=== PATIENT | male | born 1960 | race American Indian/Alaskan Native ===

== ENCOUNTER 2018-12-05 14:53 | Inpatient (IN) | payer MEDICAID ==
[2018-12-05] MEDS ORDERED: methylPREDNISolone SOD SUCC 125 MG/2 ML VIAL IVP ONE (15:52)
[2018-12-05] MEDS ORDERED: IPRATROPIUM/ALBUTEROL 3 ML DEYVIAL IH ONE (15:52)
--- NOTE | 2018-12-05 15:52 | EDPHY ---
H & P Time Seen by Provider: 12/05/18 15:37 HPI/ROS: CHIEF COMPLAINT: Shortness of breath HISTORY OF PRESENT ILLNESS: Patient is a 58-year-old male with a history of emphysema who presents emergency department with worsening shortness of breath. The patient states that 2 weeks ago he was diagnosed with influenza. Because of this he had increasing shortness of breath. He was treated with antibiotics and steroids. He seemed to turn the corner on Monday and Monday. However on Monday he began to worsen once again. He now has increasing shortness of breath. He has decreased exercise tolerance. He has trouble speaking in full sentences. He has a cough productive of yellow sputum. He denies fevers or chills. No leg pain or swelling. The patient does not smoke. REVIEW OF SYSTEMS: 10 systems were reveiwed and are negative with the exception of the elements mentioned in the history of present illness. Past Medical/Surgical History: Includes emphysema Social history: Patient does not smoke. Patient is . Smoking Status: Current some day smoker Physical Exam: 37.0, 148/87, 92, 18, 85%. Patient was placed on 4 L NS at 92%. GENERAL: Mild acute respiratory distress, alert. HEENT: Eyes normal to inspection, normal pharynx, no signs of dehydration. NECK: Normal, supple. RESPIRATORY: Patient has mild increase work of breathing with mild respiratory distress. Patient has decreased breath sounds bilaterally. Scattered wheezing. CVS: Regular rate and rhythm, no rubs, murmurs, or gallops. ABDOMEN: Soft, nontender, nondistended, no organomegaly. BACK: Normal to inspection, no CVA tenderness. SKIN: Normal color, no rash, warm, dry. No pallor. EXTREMITIES: Finger clubbing. No pedal edema, no calf tenderness, no Homans sign or cords, no joint swelling. NEURO/PSYCH: Alert and oriented, normal mood and affect, normal motor sensory exam. No obvious cranial nerve deficit. Constitutional: Initial Vital Signs Temperature (C) 37.0 C 12/05/18 15:03 Heart Rate 92 12/05/18 15:03 Respiratory Rate 18 12/05/18 15:03 Blood Pressure 149/87 H 12/05/18 15:03 O2 Sat (%) 85 L 12/05/18 15:03 O2 Delivery Mode Nasal Cannula O2 (L/minute) 4 Allergies/Adverse Reactions: Penicillins Allergy (Verified 12/05/18 15:02) Home Medications: Medication Instructions Recorded Aspirin [Aspirin 325 mg (*)] 325 mg PO TID PRN 02/18/14 Herbals/Supplements -Info Only 1 ea PO DAILY 02/18/14 Ipratropium/Albuterol [Combivent 1 inh IH QID 30 Days mdi 02/19/14 Respimat Inhal [place](RX)] levOFLOXACIN [levAQUIN (*)] 750 mg PO DAILY10 #4 tab 02/19/14 predniSONE 40 mg PO DAILY #20 tablet 02/21/14 Medical Decision Making - Diagnostics Imaging Results: Imaging Impressions Chest X-Ray 12/05/18 15:53 Impression: 1. Prominent pulmonary vasculature along with some prominent interstitial markings and curly B lines. Consider mild fluid overload/CHF. 2. Underlying COPD and emphysema. 3. Peribronchial thickening bilaterally. Consider underlying bronchitis, viral process, and/or reactive airways disease. ED Course/Re-evaluation: In the emergency department I discussed possible etiologies with the patient. I answered all his questions. IV was placed. Laboratory studies were obtained. Patient had chest x-ray and EKG ordered. Patient was given a DuoNeb and Solu-Medrol 125 mg IV. CBC was notable elevated white count of 11 his chemistry panel is unremarkable. Lactic acid was 0.6. His BNP was 27. On recheck the patient was still having a fair amount of respiratory distress. He states that the inhaler improved his symptoms but he still has increased work of breathing with decreased breath sounds. He was given a repeat albuterol neb. The chest x-ray: Please refer the dictated report. There is underlying COPD. They queried whether this could potentially be CHF. EKG: Sinus rhythm at 85. Normal axis. Normal intervals. No ST or T-wave abnormalities. Based on the patient's presentation and his BNP of 27, I think this is more likely COPD exacerbation. Based on the patient's ongoing shortness of breath and work of breathing as well as his oxygen requirement 4 L the saturation 90% he will be admitted for further observation. Differential Diagnosis: My differential includes but not limited to COPD exacerbation, pneumonia, bronchitis, ACS, acute SD - Data Points Laboratory Results: Laboratory Results 12/05/18 15:52 12/05/18 15:52 12/05/18 12/05/18 12/05/18 15:52 15:52 15:52 WBC 11.47 10^3/uL H 10^3/uL (3.80-9.50) RBC 5.14 10^6/uL 10^6/uL (4.40-6.38) Hgb 15.1 g/dL g/dL (13.7-17.5) Hct 45.9 % % (40.0-51.0) MCV 89.3 fL fL (81.5-99.8) MCH 29.4 pg pg (27.9-34.1) MCHC 32.9 g/dL g/dL (32.4-36.7) RDW 12.3 % % (11.5-15.2) Plt Count 245 10^3/uL 10^3/uL (150-400) MPV 9.1 fL fL (8.7-11.7) Neut % (Auto) 79.1 % H % (39.3-74.2) Lymph % (Auto) 11.5 % L % (15.0-45.0) [place] % (Auto) 6.1 % % (4.5-13.0) Eos % (Auto) 2.5 % % (0.6-7.6) Baso % (Auto) 0.5 % % (0.3-1.7) Nucleat RBC Rel Count 0.0 % % (0.0-0.2) Absolute Neuts (auto) 9.06 10^3/uL H 10^3/uL (1.70-6.50) Absolute Lymphs (auto) 1.32 10^3/uL 10^3/uL (1.00-3.00) Absolute Monos (auto) 0.70 10^3/uL 10^3/uL (0.30-0.80) Absolute Eos (auto) 0.29 10^3/uL 10^3/uL (0.03-0.40) Absolute Basos (auto) 0.06 10^3/uL 10^3/uL (0.02-0.10) Absolute Nucleated RBC 0.00 10^3/uL 10^3/uL (0-0.01) Immature Gran % 0.3 % % (0.0-1.1) Immature Gran # 0.04 10^3/uL 10^3/uL (0.00-0.10) VBG Lactic Acid Sodium 136 mEq/L mEq/L (135-145) Potassium 4.5 mEq/L mEq/L (3.5-5.2) Chloride 100 mEq/L mEq/L (97-110) Carbon Dioxide 29 mEq/l mEq/l (22-31) Anion Gap 7 mEq/L mEq/L (6-14) BUN 14 mg/dL mg/dL (7-23) Creatinine 0.8 mg/dL mg/dL (0.7-1.3) Estimated GFR > 60 Glucose 92 mg/dL mg/dL (70-100) Calcium 9.1 mg/dL mg/dL (8.5-10.4) Troponin I < 0.012 ng/mL ng/mL (0.000-0.034) NT-Pro-B Natriuret Pep 27 pg/mL pg/mL (0-125) 12/05/18 15:52 WBC RBC Hgb Hct MCV MCH MCHC RDW Plt Count MPV Neut % (Auto) Lymph % (Auto) [place] % (Auto) Eos % (Auto) Baso % (Auto) Nucleat RBC Rel Count Absolute Neuts (auto) Absolute Lymphs (auto) Absolute Monos (auto) Absolute Eos (auto) Absolute Basos (auto) Absolute Nucleated RBC Immature Gran % Immature Gran # VBG Lactic Acid 0.6 mmol/L L mmol/L (0.7-2.1) Sodium Potassium Chloride Carbon Dioxide Anion Gap BUN Creatinine Estimated GFR Glucose Calcium Troponin I NT-Pro-B Natriuret Pep Medications Given: Discontinued Medications Albuterol/Ipratropium (Duoneb) 3 ml IH EDNOW ONE Stop: 12/05/18 15:53 Last Admin: 12/05/18 15:59 Dose: 3 ml Methylprednisolone Sodium Succinate (Solu-Medrol) 125 mg IVP EDNOW ONE Stop: 12/05/18 15:53 Last Admin: 12/05/18 15:59 Dose: 125 mg Departure - Departure Disposition: [facility] Inpatient Acute Clinical Impression: Chronic obstructive pulmonary disease with acute exacerbation Condition: Good
[2018-12-05 16:14] LABS: PLATELET COUNT 245 10^3/uL (150-400)
[2018-12-05] MEDS ORDERED: ALBUTEROL 3 ML DEYVIAL IH ONE (17:28)
[2018-12-05] MEDS ORDERED: ONDANSETRON 4 MG/2 ML VIAL IVP PRN (18:35)
[2018-12-05] MEDS ORDERED: ACETAMINOPHEN 325 MG TAB PO PRN (18:35)
[2018-12-05] MEDS ORDERED: ALBUTEROL 3 ML DEYVIAL IH PRN (18:35)
[2018-12-05] MEDS ORDERED: ONDANSETRON DISINTEGRATING 4 MG TAB PO PRN (18:35)
--- NOTE | 2018-12-05 18:42 | PDGENHP ---
History and Physical - Chief Complaint sob - History of Present Illness Patient is a 58-year-old male with a history of emphysema who presents with worsening shortness of breath. The patient states that 2 weeks ago he was diagnosed with influenza. Because of this he had increasing shortness of breath. He was treated with antibiotics and steroids. He seemed to turn the corner on Monday and Monday. However on Monday he began to worsen once again. He now has increasing shortness of breath. He has decreased exercise tolerance. He has trouble speaking in full sentences. He has a cough productive of yellow sputum. He denies fevers or chills. No leg pain or swelling. The patient does not smoke. His baseline O2 is 1-2 Liters. He is on 4 Liters currently. He is tachycardic. He is tachypneic. Denies cp, palpitations, or leg swelling Past Medical/Surgical History: emphysema Social history: Patient does not smoke. Patient is . FmHx: non contributory Studies: CXR: Hyperexpansion and peribronchial thickening, personally reviewed EKG: sinus tachycardia ER: Solumedrol given. Nebs given History Information - Allergies/Home Medication List Allergies/Adverse Reactions: Penicillins Allergy (Verified 12/05/18 15:02) Home Medications: Herbals/Supplements -Info Only 1 ea PO DAILY 02/18/14 [Last Taken 12/05/18] Albuterol [Proventil Inhaler HFA (*)] 1 - 2 puffs IH Q4H PRN 12/05/18 [Last Taken 12/05/18 12:00] Fluticasone/Salmeter 250/50Mcg [Advair 250/50 (*)] 1 puffs IH BID 12/05/18 [ Last Taken 11/28/18] Ipratropium/Albuterol [Duoneb (*)] 3 ml IH Q4H PRN 12/05/18 [Last Taken 16:00] Tiotropium Inhaler [Spiriva Handihaler] 18 mcg IH DAILY 12/05/18 [Last Taken ] I have personally reviewed and updated: medical history, social history - Social History Smoking Status: Current some day smoker Review of Systems Review of Systems: ROS: 10pt was reviewed & negative except for what was stated in HPI & below Physical Exam Physical Exam: Temp Pulse Resp BP Pulse Ox 37 C 102 H 30 H 125/79 H 91 L 12/05/18 17:53 12/05/18 17:53 12/05/18 17:53 12/05/18 17:53 12/05/18 17:53 O2 (L/minute) 4 Constitutional: no apparent distress Eyes: PERRL Ears, Nose, Mouth, Throat: moist mucous membranes, hearing normal Cardiovascular: regular rate and rhythym, No edema Respiratory: reduced air movement, expiratory wheeze, respiratory distress, No no respiratory distress Gastrointestinal: normoactive bowel sounds Skin: warm Musculoskeletal: full muscle strength Neurologic: AAOx3 Psychiatric: interacting appropriately, not anxious, not encephalopathic Lymph, Heme, Immunologic: No petechiae Lab Data & Imaging Review 12/05/18 15:52 12/05/18 15:52 WBC 11.47 10^3/uL (3.80-9.50) H 12/05/18 15:52 RBC 5.14 10^6/uL (4.40-6.38) 12/05/18 15:52 Hgb 15.1 g/dL (13.7-17.5) 12/05/18 15:52 Hct 45.9 % (40.0-51.0) 12/05/18 15:52 MCV 89.3 fL (81.5-99.8) 12/05/18 15:52 MCH 29.4 pg (27.9-34.1) 12/05/18 15:52 MCHC 32.9 g/dL (32.4-36.7) 12/05/18 15:52 RDW 12.3 % (11.5-15.2) 12/05/18 15:52 Plt Count 245 10^3/uL (150-400) 12/05/18 15:52 MPV 9.1 fL (8.7-11.7) 12/05/18 15:52 Neut % (Auto) 79.1 % (39.3-74.2) H 12/05/18 15:52 Lymph % (Auto) 11.5 % (15.0-45.0) L 12/05/18 15:52 [place] % (Auto) 6.1 % (4.5-13.0) 12/05/18 15:52 Eos % (Auto) 2.5 % (0.6-7.6) 12/05/18 15:52 Baso % (Auto) 0.5 % (0.3-1.7) 12/05/18 15:52 Nucleat RBC Rel Count 0.0 % (0.0-0.2) 12/05/18 15:52 Absolute Neuts (auto) 9.06 10^3/uL (1.70-6.50) H 12/05/18 15:52 Absolute Lymphs (auto) 1.32 10^3/uL (1.00-3.00) 12/05/18 15:52 Absolute Monos (auto) 0.70 10^3/uL (0.30-0.80) 12/05/18 15:52 Absolute Eos (auto) 0.29 10^3/uL (0.03-0.40) 12/05/18 15:52 Absolute Basos (auto) 0.06 10^3/uL (0.02-0.10) 12/05/18 15:52 Absolute Nucleated RBC 0.00 10^3/uL (0-0.01) 12/05/18 15:52 Immature Gran % 0.3 % (0.0-1.1) 12/05/18 15:52 Immature Gran # 0.04 10^3/uL (0.00-0.10) 12/05/18 15:52 VBG Lactic Acid 0.6 mmol/L (0.7-2.1) L 12/05/18 15:52 Sodium 136 mEq/L (135-145) 12/05/18 15:52 Potassium 4.5 mEq/L (3.5-5.2) 12/05/18 15:52 Chloride 100 mEq/L (97-110) 12/05/18 15:52 Carbon Dioxide 29 mEq/l (22-31) 12/05/18 15:52 Anion Gap 7 mEq/L (6-14) 12/05/18 15:52 BUN 14 mg/dL (7-23) 12/05/18 15:52 Creatinine 0.8 mg/dL (0.7-1.3) 12/05/18 15:52 Estimated GFR > 60 12/05/18 15:52 Glucose 92 mg/dL (70-100) 12/05/18 15:52 Calcium 9.1 mg/dL (8.5-10.4) 12/05/18 15:52 Troponin I < 0.012 ng/mL (0.000-0.034) 12/05/18 15:52 NT-Pro-B Natriuret Pep 27 pg/mL (0-125) 12/05/18 15:52 Assessment & Plan Assessment: #Chronic obstructive pulmonary disease with acute exacerbation #Acute Respiratory Failure #Leukocytosis #Sinus Tachycardia #Recent Influenza Plan: Admission I am worried that his respiratory failure is getting worse. He is having a difficult time with air movement. He is working hard. We will start CPAP. cont steroids, IV for now I dont see a clear infiltrate on CXR but given his Leukocytosis and worsening respiratory failure and his reported intermittent fever, we will start Levaquin. A procalcitonin has been ordered. A resp panel is pending. cont bronchodilators There are no ICU beds and so he will remain in the ER for now SCD's Full Code total critical care time is 60 minutes
[2018-12-05] MEDS ORDERED: HYDROCODONE/APAP 5/325 TAB ONE (19:15)
[2018-12-05] MEDS: HYDROCODONE/APAP 5/325 TAB PO PRN (19:16)
--- NOTE | 2018-12-05 20:20 | CPEKG ---
Test Reason : OPEN Blood Pressure : / mmHG Vent. Rate : 085 BPM Atrial Rate : 084 BPM P-R Int : 160 ms QRS Dur : 097 ms QT Int : 371 ms P-R-T Axes : 078 052 059 degrees QTc Int : 442 ms Sinus rhythm Ventricular premature complex Probable left atrial enlargement Confirmed by Maribel Levy [id number]) on 12/05/2018 8:19:59 PM Referred By: MARIBEL LEVY Confirmed By:Maribel Levy
[2018-12-05] MEDS: IPRATROPIUM/ALBUTEROL 3 ML DEYVIAL IH SCH (20:53)
[2018-12-05] MEDS: methylPREDNISolone SOD SUCC 125 MG/2 ML VIAL IVP SCH (22:32)
[2018-12-06 04:37] LABS: PLATELET COUNT 243 10^3/uL (150-400)
[2018-12-06] MEDS: IPRATROPIUM/ALBUTEROL 3 ML DEYVIAL IH SCH ×4 (05:35→20:20)
[2018-12-06] MEDS: methylPREDNISolone SOD SUCC 125 MG/2 ML VIAL IVP SCH ×3 (05:47→22:04)
[2018-12-06] MEDS ORDERED: predniSONE 20 MG TAB PO SCH (09:00)
--- NOTE | 2018-12-06 09:40 | ASMTCASEMG ---
Living Arrangements What is your living Answers: Alone arrangement? Who do you live with? Type Of Residence What kind of residence do Answers: Apartment you live in? Discharge Plan Comments Coordination Status Comments Notes: Patient is a 58yo male who is admitted OBS for COPD exacerbation, acute respiratory failure, leukocytosis, sinus tachycardia and recent influenza. No therapies ordered at this time. D/C plan TBD. CM will follow. Date Signed: 12/06/2018 09:40 AM Electronically Signed By:Cindy Arora LCSW
[2018-12-06] MEDS: HYDROCODONE/APAP 5/325 TAB PO PRN ×2 (10:23→17:16)
--- NOTE | 2018-12-06 10:43 | PDMN ---
Medical Necessity Medical necessity: Pt meets IP criteria as of 12/05/2018 per and MCG M-100 ( COPD); est los > 2 mn for ongoing tx and management of acute COPD exacerbation with increased O2 demand from baseline, tachypnea and tachycardia; requiring CPAP, IV steroids, IV ABX, and further workup.
--- NOTE | 2018-12-06 13:58 | HOSPPROG ---
Hospitalist Progress Note Assessment/Plan: # viral bronchitis - rhinovirus/enterovirus # COPD exacerbation d/t viral bronchitis - cont nebs, solu-medrol, abx (change levaquin to azith) - add mucinex, flutter valve, percussion # acute on chronic hypoxic resp failure - d/t COPD exacerbation Subjective: feels much better than yesterday; still very short of breath; coughing but having difficulty producing sputum Objective: Vital Signs Temp Pulse Resp BP Pulse Ox 36.1 C 89 21 H 127/74 H 89 L 12/06/18 08:00 12/06/18 11:01 12/06/18 11:01 12/06/18 08:00 12/06/18 11:01 Laboratory Results 12/06/18 03:08 12/06/18 03:08 12/05/18 12/06/18 12/07/18 05:59 05:59 05:59 Intake Total 150 Output Total 300 Balance -150 chart reviewed CXR personally reviewed - Physical Exam Constitutional: other (persed lip breathing, very short of breath) Cardiovascular: regular rate and rhythym, no murmur, rub, or gallop Respiratory: expiratory wheeze, respiratory distress, rhonchi, other (Speaking in short sentences) ICD10 Worksheet Patient Problems: Problems Problem Status Onset Acute respiratory failure Acute Chronic obstructive pulmonary disease with acute exacerbation Acute
[2018-12-06] MEDS: guaiFENesin 600 MG TAB.ER PO SCH ×2 (14:39→20:29)
[2018-12-07] MEDS: IPRATROPIUM/ALBUTEROL 3 ML DEYVIAL IH SCH ×4 (05:33→20:08)
[2018-12-07] MEDS: methylPREDNISolone SOD SUCC 125 MG/2 ML VIAL IVP SCH (05:55)
[2018-12-07] MEDS: HYDROCODONE/APAP 5/325 TAB PO PRN ×3 (06:01→22:23)
[2018-12-07] MEDS: guaiFENesin 600 MG TAB.ER PO SCH ×2 (08:51→20:59)
[2018-12-07] MEDS ORDERED: AZITHROMYCIN IV 500 MG in NS 250 ML IV SCH (09:00)
--- NOTE | 2018-12-07 12:26 | HOSPPROG ---
Hospitalist Progress Note Assessment/Plan: # viral bronchitis - rhinovirus/enterovirus; recently recovered from influenza # COPD exacerbation d/t viral bronchitis - cont nebs, solu-medrol (decrease dose today), abx (change levaquin to azith ), mucinex - cont pulm hygiene (flutter valve, percussion) # acute on chronic hypoxic resp failure - d/t COPD exacerbation; home 2L O2 requirement; follows with Dr Kelley Subjective: feels much better today; still SOB with activity but improving; cough is more productive Objective: Vital Signs Temp Pulse Resp BP Pulse Ox 36.3 C 74 18 106/54 L 91 L 12/07/18 11:49 12/07/18 11:49 12/07/18 11:49 12/07/18 11:49 12/07/18 11:49 Laboratory Results 12/06/18 03:08 12/07/18 03:10 12/06/18 12/07/18 12/08/18 05:59 05:59 05:59 Intake Total 150 840 550 Output Total 300 1675 300 Balance -150 -835 250 high risk - he is still has high O2 demands - Physical Exam Constitutional: uncomfortable Cardiovascular: regular rate and rhythym, no murmur, rub, or gallop Respiratory: reduced air movement, expiratory wheeze (diffuse), respiratory distress (mild), No clear to auscultation, No rhonchi Gastrointestinal: normoactive bowel sounds, soft, non-tender abdomen, no palpable masses ICD10 Worksheet Patient Problems: Problems Problem Status Onset Acute respiratory failure Acute Chronic obstructive pulmonary disease with acute exacerbation Acute
--- NOTE | 2018-12-07 13:10 | ASMTCMCOM ---
CM Note CM Note Notes: CM discussed pt care with RN. Pt is on IV antibiotics. CM to follow to determine if pt will continue to follow to determine needs at D/C. Referral initiated with [facility] and [facility]. Plan: Home with IV antibiotics when medically stable. Date Signed: 12/07/2018 01:09 PM Electronically Signed By:ELIECER Rome
[2018-12-07] MEDS: methylPREDNISolone SOD SUCC 40 MG/ML VIAL IVP SCH ×2 (13:49→20:59)
[2018-12-08] MEDS: methylPREDNISolone SOD SUCC 40 MG/ML VIAL IVP SCH ×3 (05:28→23:34)
[2018-12-08] MEDS: HYDROCODONE/APAP 5/325 TAB PO PRN ×3 (05:34→23:43)
[2018-12-08] MEDS: IPRATROPIUM/ALBUTEROL 3 ML DEYVIAL IH SCH ×4 (05:38→19:25)
[2018-12-08] MEDS: guaiFENesin 600 MG TAB.ER PO SCH ×2 (08:59→23:34)
[2018-12-08] MEDS: AZITHROMYCIN 250 MG TAB PO SCH (08:59)
[2018-12-08] MEDS ORDERED: LACTULOSE 20 GM/30 ML UDCUP PO PRN (11:55)
[2018-12-08] MEDS ORDERED: POLYETHYLENE GLYCOL 3350 17 GM PKT PO PRN (11:55)
[2018-12-08] MEDS ORDERED: BISACODYL 10 MG SUPP PR PRN (11:55)
[2018-12-08] MEDS ORDERED: MAGNESIUM HYDROXIDE 30 ML UDCUP PO PRN (11:55)
--- NOTE | 2018-12-08 16:25 | HOSPPROG ---
Hospitalist Progress Note Assessment/Plan: DIAGNOSES: * Acute hypoxemic respiratory failure * Acute COPD exacerbation * Acute viral respiratory infection with rhino virus * Chronic COPD limiting daily activities significantly PLANS: * Continue current steroid and bronchodilators * Continue flutter valve therapy * Continue attempts to increase ambulation SUBJECTIVE: Some improvement in dyspnea today but still quite limited with very much difficulty ambulating without oxygen OBJECTIVE Vitals reviewed: Respiratory rate still intermittently tachypneic, pulse intermittently still tachycardic, blood pressure good no fever 4-5 L oxygen by nasal cannula (usual 2 L at home) Cvt Rn, my review: Sinus Exam: alert oriented skin warm dry color ok resps labored at rest on oxygen lungs severely diminished breath sounds with some expiratory wheeze, very tight heart regular, no murmur abd soft nondistended nontender, bowel sounds present limbs warm, no edema iv site ok Microbiology: PCR study shows rhino virus Blood cultures pending with nothing growing so far Objective: Vital Signs Temp Pulse Resp BP Pulse Ox 36.3 C 82 18 122/57 H 91 L 12/08/18 16:00 12/08/18 16:00 12/08/18 16:00 12/08/18 16:00 12/08/18 16:00 Laboratory Results 12/06/18 03:08 12/07/18 03:10 12/07/18 12/08/18 12/09/18 06:59 06:59 06:59 Intake Total 1190 1450 Output Total 2139 0189 Balance -485 -875 ICD10 Worksheet Patient Problems: Problems Problem Status Onset Chronic obstructive pulmonary disease with acute exacerbation Acute Acute respiratory failure Acute
[2018-12-08] MEDS: SENNOSIDES/DOCUSATE SODIUM TAB PO SCH (23:33)
[2018-12-09] MEDS: IPRATROPIUM/ALBUTEROL 3 ML DEYVIAL IH SCH ×4 (05:28→21:11)
[2018-12-09] MEDS: methylPREDNISolone SOD SUCC 40 MG/ML VIAL IVP SCH ×3 (05:46→21:37)
[2018-12-09] MEDS: HYDROCODONE/APAP 5/325 TAB PO PRN ×4 (05:51→22:41)
[2018-12-09] MEDS: AZITHROMYCIN 250 MG TAB PO SCH (08:09)
[2018-12-09] MEDS: SENNOSIDES/DOCUSATE SODIUM TAB PO SCH ×2 (08:09→21:37)
[2018-12-09] MEDS: guaiFENesin 600 MG TAB.ER PO SCH ×2 (08:09→21:36)
--- NOTE | 2018-12-09 17:15 | HOSPPROG ---
Hospitalist Progress Note Assessment/Plan: DIAGNOSES: * Acute hypoxemic respiratory failure * Acute COPD exacerbation * Acute viral respiratory infection with rhino virus * Chronic COPD significantly limiting daily activities at home PLANS: * Continue current steroid and bronchodilators * Continue flutter valve therapy * Continue attempts to increase ambulation * potentially home next 1-2 days if continues improvement SUBJECTIVE: Some improvement in dyspnea today but still quite limited with very much difficulty ambulating without oxygen OBJECTIVE Vitals reviewed: now all stable w no fever 2 L oxygen by nasal cannula (usual 2 L at home) Top Trimmer, my review: Sinus Exam: alert oriented skin warm dry color ok resps much less labored at rest on oxygen lungs severely diminished breath soundsless wheeze heart regular, no murmur abd soft nondistended nontender, bowel sounds present limbs warm, no edema iv site ok Microbiology: PCR study shows rhino virus Blood cultures pending with nothing growing so far Objective: Vital Signs Temp Pulse Resp BP Pulse Ox 36.4 C 78 16 117/75 89 L 12/09/18 15:29 12/09/18 15:29 12/09/18 15:29 12/09/18 15:29 12/09/18 15:29 Laboratory Results 12/06/18 03:08 12/07/18 03:10 12/08/18 12/09/18 12/10/18 06:59 06:59 06:59 Intake Total 1450 2510 2380 Output Total 5287 Balance -875 2510 2380 ICD10 Worksheet Patient Problems: Problems Problem Status Onset Chronic obstructive pulmonary disease with acute exacerbation Acute Acute respiratory failure Acute
[2018-12-10] MEDS: HYDROCODONE/APAP 5/325 TAB PO PRN (06:11)
[2018-12-10] MEDS: methylPREDNISolone SOD SUCC 40 MG/ML VIAL IVP SCH (06:12)
[2018-12-10] MEDS: IPRATROPIUM/ALBUTEROL 3 ML DEYVIAL IH SCH ×2 (06:27→10:47)
[2018-12-10] MEDS: guaiFENesin 600 MG TAB.ER PO SCH (08:47)
[2018-12-10] MEDS: SENNOSIDES/DOCUSATE SODIUM TAB PO SCH (08:47)
[2018-12-10 11:42] VITALS: BP 122/65
--- NOTE | 2018-12-10 12:02 | PDDCSUM ---
Discharge Summary Discharge Summary: Date of Admission: 12/05/2018 Date of Discharge: 12/11/2018 Studies: CXR Discharge Diagnoses: 1. Acute on chronic hypoxemic respiratory failure 2. Acute COPD exacerbation 3. Rhinovirus respiratory infection Brief Hospital Course: 58yo M with COPD on chronic oxygen presented with worsening shortness of breath despite outpatient steroids. He was found to be in respiratory failure requiring CPAP. He improved with bronchodilators, IV steroids. He did receive several days of azithromycin as well. Respiratory viral PCR was + for rhinovirus. He was stable on his baseline 2L/min of supplemental oxygen. I discharged him to complete a prolonged steroid taper. He has appropriate inhalers at home and sees Dr Patrick Kelley in pulmonary clinic. Medications: Please refer to EMR for complete list. I wrote prescription for prednisone and mucinex. Follow Up Plan: 1. PCP later this week 2. Dr Patrick Kelley in pulmonary clinic in 1-2 weeks Physical Exam: Vitals reviewed, stable. Alert and oriented, thin with barrel chest. RRR, lungs with diminished breath sounds but no wheezing, no accessory muscle use, abdomen soft and nt, no leg edema or JVD.
--- NOTE | 2018-12-10 12:13 | ASMTLACE ---
LACE Length of stay for Answers: 4-6 days current admission Acuity / Level of Answers: Yes Care: Did the patient have an inpatient admission? Comorbidities - select Answers: Chronic pulmonary disease all that apply Opioid dependence / Chronic pain Other Notes: Emphysema # of Emergency department Answers: 1-2 visits in the last 6 months Score: 15 Date Signed: 12/10/2018 12:12 PM Electronically Signed By:Carlotta Botello RN
--- NOTE | 2018-12-10 12:18 | ASMTDCNOTE ---
Case Management Discharge Discharge Order Complete? Answers: Yes Patient to Obtain Answers: Independently Medications Transportation Arranged Answers: Family/Friends Discharge Comments Notes: Patient discharged home with no needs. I updated [facility] and [facility]. He will resume home O2 as directed. Date Signed: 12/10/2018 12:17 PM Electronically Signed By:Carlotta Botello RN
== END 2018-12-10 12:49 | disposition home health service (06) | DRG 133 ==
LOC: OBSVTOIN 18:03 → F2W 21:56
PROVIDERS: ADMIT Family Medicine; ATTEND Family Medicine
DX: J96.21 Acute and chronic respiratory failure with hypoxia (principal); J44.1 Chronic obstructive pulmonary disease with (acute) exacerbation; Z99.81 Dependence on supplemental oxygen; J06.9 Acute upper respiratory infection, unspecified; B97.89 Other viral agents as the cause of diseases classified elsewhere; Z72.0 Tobacco use
CPT/HCPCS: 96365; 97162-GP; 97165-GO; 97535-GO; J0456; J1956; J2920; J2930; J7613